=== PATIENT | male | born 1955 | race African-American/Black ===

== ENCOUNTER 2018-04-03 23:25 | Emergency (ER) | payer MEDICAID ==
[~2018-04-03] VITALS: Ht 172.7 cm; Wt 88.5 kg
[2018-04-03 23:28] VITALS: BP 130/73
[2018-04-04] MEDS ORDERED: LIDOCAINE 2% JEL 5 ML TUBE MC ONE
[2018-04-04] MEDS ORDERED: MAG HYDROX/AL HYDROX/SIMETH 30 ML UDC PO ONE
[2018-04-04] MEDS ORDERED: MAG HYDROX/AL HYDROX/SIMETH 30 ML UDC ONE (00:15)
[2018-04-04] MEDS ORDERED: LIDOCAINE VISCOUS 2% UD 15 ML UDC ONE (00:16)
--- NOTE | 2018-04-04 09:34 | NUR ---
KIMI received a call from Mable, entry level receptionist at [facility] stating that pt. was discharged from ED late last night and wants to speak with SW. KIMI met with pt. in the lobby of [facility]. Pt. is alert and oriented x 4. Pt. is polite and pleasant with SW. Pt. is homeless and wanting resources for the Winter [facility] Program. Pt. is familiar with the [facility] and was staying at [facility], however pt. 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 KIMI gave pt. list of the [id number] with time and location schedule. KIMI also gave pt. contact information to [facility] since pt. does received SSI/monthly. TAP card and the aforementioned resources were provided to the pt. KIMI also encouraged pt. to go to [facility] and [facility] for services and provided the location address. No other social service needs are requested at this time.
== END 2018-04-04 00:22 | disposition home or self-care (01) ==
LOC: ER 23:25
DX: J06.9 Acute upper respiratory infection, unspecified (principal); K04.7 Periapical abscess without sinus; G89.29 Other chronic pain; Z59.0 Homelessness